=== PATIENT | male | born 1960 | race Caucasian/White ===

== ENCOUNTER 2020-05-10 10:35 | Emergency (ER) | payer MEDICARE ==
[~2020-05-10 10:35] MED LIST: ASPIRIN CHEWABL81 MG PO; ATROVENT (00.2 MG/ML INH; BACTRIM DS TAB1 EACH PO; CLARITIN10 MG PO; DULERA 200 MCG8.8 GM PO; LACTINEX1 EACH PO; LEVAQUIN750 MG PO; MUCINEX 600MG600 MG PO; PREDNISONE 20MG20 MG PO; SINGULAIR10 MG PO; THORAZINE25 MG PO; XOPENEX (11.25 MG/3 INH; ZANTAC150 MG PO
[2020-05-10 11:57] LABS: BASOPHIL 0.3 % (0-2); EOSINOPHIL 0 % (0-5); HCT 49.6 % (42.0-52.0); HGB 15.1 g/dl (13.2-18.0); LYMPHOCYTE 15.9 % (15-48); MCHC 30.4 g/dL (32.0-36.0); MCV 88.6 fL (78.0-100.0); MONOCYTE 8.3 % (0-12); MPV 10.4 fL (6.0-9.5); NRBC 0; PLT 105 K/uL (150-400); RDW 16.9 % (11.5-14.0); WBC 3.7 K/uL (4.0-10.5)
[2020-05-10 12:38] LABS: CORONAVIRUS 2019 SARS-COV-2 POSITIVE (NEGATIVE); INFLUENZA A NAA NEGATIVE (NEGATIVE)
[2020-05-10 12:46] LABS: INR 1.15 (0.9-1.2)
[2020-05-10 12:53] LABS: BILIRUBIN - TOTAL 0.4 mg/dL (0.2-1.0); BUN/CREAT RATIO (CALC) 16.4 RATIO; CREATININE 1.34 mg/dL (0.67-1.17); GLOBULIN (CALCULATION) 4.2 g/dL; POTASSIUM 3.9 mmol/L (3.5-5.1); TOTAL PROTEIN 7.2 g/dL (6.4-8.2)
[2020-05-10] MEDS ORDERED: MEDROL 4MG DOSEP4 MG PO (18:16)
[2020-05-10] MEDS ORDERED: TESSALON PERLE100 M1 PO (18:16)
== END 2020-05-10 19:14 | disposition home or self-care (01) ==
LOC: FER 10:35
PROVIDERS: Emergency Medicine
DX: U07.1 COVID-19 (principal); R42 Dizziness and giddiness; I10 Essential (primary) hypertension; J44.9 Chronic obstructive pulmonary disease, unspecified
CPT/HCPCS: 36415; 36600; 71045; 71250; 80053; 82803; 83605; 85025; 85610; 85730; J7050; M0239; U0002